=== PATIENT | female | born 1970 | race Caucasian/White ===

== ENCOUNTER 2021-12-07 07:37 | Outpatient (CLI) | payer OTHER, SELFPAY ==
--- NOTE | 2021-12-07 07:42 | CT_ITS ---
STUDY: CT SCAN LOWER EXTREMITY LEFT REASON FOR EXAM: Female, 51 years old. LEFT KNEE VARUS DEFORMITY.[facility] protocol. RADIATION DOSAGE (If Supplied By Facility): CTDIvol = ( 19.01 ) mGy, DLP = ( 1437.24 ) mGycm. Individualized dose optimization techniques were used for this CT.? TECHNIQUE: Multiple axial tomographic images of the left hip, left knee and left ankle joints were obtained. Coronal and sagittal reconstruction was obtained as well. COMPARISON: None. FINDINGS: Imaging of the hip joint was obtained. No significant joint space narrowing is seen. No bony abnormalities present. Imaging of the knee joint was obtained. There is a marked degree of joint space narrowing and degenerative spur formation along the medial knee compartment. There is increased sclerosis of the medial femoral condyle. No significant joint effusion is seen. Imaging of the ankle joint was obtained. No significant abnormality is seen. CT/Extremity Lower without Contra IMPRESSION: Marked degree of joint space narrowing and degenerative changes of the medial compartment of knee joint. Electronically Signed: Alexx Baron MD at 12:42 EST ,
--- NOTE | 2021-12-07 07:42 | RAD_ITS ---
STUDY: X-RAY CHEST REASON FOR EXAM: Female, 51 years old. Preop for pelvic surgery TECHNIQUE: PA and lateral views of the chest. COMPARISON: None. FINDINGS: The lungs are clear and expanded. There is no demonstrated pleural abnormality. Normal size heart. Normal mediastinum and cliff. Normal visualized pulmonary arteries. Normal visualized aortic arch and descending thoracic aorta. Normal visualized thoracic spine. Normal visualized ribs, clavicles, and shoulders. There is no demonstrated abnormality of the visualized soft tissue structures of the upper abdomen. RAD/Chest PA and Lateral IMPRESSION: Normal x-ray examination of the chest. Electronically Signed: Benjamin Suárez MD at 16:23 EST ,
--- NOTE | 2021-12-07 08:01 | EKG12_ITS ---
Test Reason : PRE OP Blood Pressure : / mmHG Vent. Rate : 068 BPM Atrial Rate : 068 BPM P-R Int : 134 ms QRS Dur : 100 ms QT Int : 398 ms P-R-T Axes : 047 011 018 degrees QTc Int : 423 ms Normal sinus rhythm Normal ECG Confirmed by TRINIDAD GARCIA, SPIKE ([id number]), continuity editor IVY BERNABE ([id number]) on 12/07/2021 2:32:53 PM Referred By: Filemon Martin Confirmed By:SPIKE ABDI MD
== END 2021-12-07 23:59 | disposition home or self-care (01) ==
LOC: CT 07:40
PROVIDERS: PCP Nurse Practitioner Family; Referring Provider Specialist; Visit Provider Specialist
DX: Z01.811 Encounter for preprocedural respiratory examination (principal); M21.162 Varus deformity, not elsewhere classified, left knee
CPT/HCPCS: 71046; 73700; 93005

== ENCOUNTER 2025-06-21 16:15 | Emergency (ER) | payer BC, SELFPAY ==
[2025-06-21] VITALS (10 sets, daily range): BP systolic 117–151; BP diastolic 78–97; PULSE 72–95; RESP 15–19; TEMP 36.6; O2SAT 95–99; BMI 39.5
--- NOTE | 2025-06-21 16:26 | EKG12_ITS ---
Test Reason : sob Blood Pressure : */* mmHG Vent. Rate : 81 BPM Atrial Rate : 81 BPM P-R Int : 132 ms QRS Dur : 102 ms QT Int : 410 ms P-R-T Axes : 37 9 16 degrees QTcB Int : 476 ms Normal sinus rhythm Cannot rule out Inferior infarct , age undetermined Abnormal ECG Confirmed by TRINIDAD GARCIA, SPIKE ([id number]), editor at large IVY BERNABE ([id number]) on 06/22/2025 8:00:26 AM Referred By: Confirmed By: SPIKE ABDI MD
--- NOTE | 2025-06-21 16:27 | EX.ED.DYSGE1 ---
HPI History of Present Illness Chief Complaint: Palpitations Narrative Narrative: 54-year-old female past medical history of depression Afsaneh presents with lightheadedness as well as palpitations/strong heartbeat in her chest that she has been feeling more frequently all day. She states that she was recently ill with an upper respiratory infection, but has not had any recent fevers or chills. She states she is not having chest pain but feels a strong heartbeat in her chest. Seems to be coming more frequently. Today she was at work and when she turned around she felt very lightheaded and near syncopal. No leg swelling, no exacerbating or alleviating factors except for when she stands up and turns around, she feels more lightheaded. [facility] Medical History PTSD (post-traumatic stress disorder) Depression Anxiety Physical exam, pre-employment Home Medications ?Medication ?Instructions ?Recorded ?Last Taken ?Type buspirone 30 mg tablet 30 mg PO BID 10/25/24 Unknown History duloxetine 60 mg capsule,delayed mg PO DAILY 10/25/24 Unknown History release tizanidine 4 mg tablet mg PO 10/25/24 Unknown History trazodone 100 mg tablet 100 mg PO QHS insomnia 10/25/24 Unknown History Allergy/AdvReac Type Severity Reaction Status Date / Time nitrofurantoin Allergy Hives Verified 06/21/25 17:13 macrocrystalline (From Macrodantin) oxycodone HCl (From Percocet) Allergy Hives Verified 06/21/25 17:13 Surgical History History of partial hysterectomy H/O hernia repair History of total left knee replacement Social History Smoking Status: Unknown if ever smoked ROS ROS ED ROS Narrative Review of systems positive for lightheadedness worse with standing and turning, positive strong heartbeat felt in chest but denies chest pain. No diaphoresis. No recent upper respiratory infection. No swelling of legs. EXAM Physical Exam Narrative Exam Narrative: Afebrile. Vital signs noted. Nontoxic-appearing. Cardiovascular examination reveals a regular rate and rhythm. Lungs are clear to auscultation bilaterally. Abdomen is soft nontender without guarding or rebound. Positive bowel sounds. Neurological examination nonfocal, nonlateralizing, moves all extremities. No pedal edema appreciable. Const Vital Signs: 06/21/25 16:16 06/21/25 16:35 06/21/25 16:40 Temperature 97.8 F Temperature Source Oral Pulse Rate 86 Pulse Rate [Lying] 85 Pulse Rate [Sitting (for 1 minute prior to obtaining)] 95 Pulse Rate [Standing (for 1 minute prior to obtaining)] 84 Respiratory Rate 18 Respiratory Effort Short of Breath Blood Pressure 144/97 H Blood Pressure [Lying] 139/85 H Blood Pressure [Sitting (for 1 minute prior to obtaining)] 148/79 H Blood Pressure [Standing (for 1 minute prior to obtaining)] 151/95 H Blood Pressure Mean 112 Blood Pressure Mean [Lying] 103 Blood Pressure Mean [Sitting (for 1 minute prior to obtaining)] 102 Blood Pressure Mean [Standing (for 1 minute prior to obtaining)] 113 Pulse Ox 98 Oxygen Delivery Method Room Air 06/21/25 16:58 06/21/25 17:00 06/21/25 17:15 Temperature Temperature Source Pulse Rate 82 86 82 Pulse Rate [Lying] Pulse Rate [Sitting (for 1 minute prior to obtaining)] Pulse Rate [Standing (for 1 minute prior to obtaining)] Respiratory Rate 15 19 H 17 Respiratory Effort Blood Pressure 121/86 H 117/78 Blood Pressure [Lying] Blood Pressure [Sitting (for 1 minute prior to obtaining)] Blood Pressure [Standing (for 1 minute prior to obtaining)] Blood Pressure Mean 97 90 Blood Pressure Mean [Lying] Blood Pressure Mean [Sitting (for 1 minute prior to obtaining)] Blood Pressure Mean [Standing (for 1 minute prior to obtaining)] Pulse Ox 97 96 99 Oxygen Delivery Method Room Air Room Air 06/21/25 17:39 Temperature Temperature Source Pulse Rate 76 Pulse Rate [Lying] Pulse Rate [Sitting (for 1 minute prior to obtaining)] Pulse Rate [Standing (for 1 minute prior to obtaining)] Respiratory Rate 17 Respiratory Effort Blood Pressure 128/86 H Blood Pressure [Lying] Blood Pressure [Sitting (for 1 minute prior to obtaining)] Blood Pressure [Standing (for 1 minute prior to obtaining)] Blood Pressure Mean 100 Blood Pressure Mean [Lying] Blood Pressure Mean [Sitting (for 1 minute prior to obtaining)] Blood Pressure Mean [Standing (for 1 minute prior to obtaining)] Pulse Ox 95 Oxygen Delivery Method Room Air MDM MDM MDM Narrative Medical decision making narrative: The differential diagnosis includes but not limited to paroxysmal SVT versus atrial fibrillation versus PACs versus PVCs. She may have orthostatic hypotension versus dehydration versus other electrolyte abnormality. Comprehensive workup was pursued. EKG was obtained and interpreted by myself independently as normal sinus rhythm at 81 bpm without ectopy or acute ST changes. No STEMI. I reviewed her laboratory work and she has normal white count of 5.5 with hemoglobin normal at 14.2, no anemia, platelet count normal at 217. CMP is grossly unremarkable with a normal sodium, potassium, and chloride. BUN normal at 19 and creatinine 0.84, no dehydration, glucose slightly elevated at 163 with a normal anion gap of 13. LFTs are grossly unremarkable. High-sensitivity troponin is 7. I do feel that this is greater than a 6-hour troponin so I do not feel that she needs a 2-hour troponin as she states she is not having chest pain as well. Chest x-ray in 1 view interpreted by myself independently shows no pneumonia or pneumothorax, no acute process. I reviewed the radiology report which confirms my independent interpretation. On repeat examination at 1800, she feels improved. She states not having the strong heartbeat any longer. While I am unsure as to the cause of her lightheadedness, she may have had intravascular volume depletion. I feel she can be discharged safely home with follow-up. She was told that she may need to wear a Holter monitor as an outpatient should she have continued palpitations or strong heartbeat. Return instructions to the emergency department were reviewed. Disposition is discharged home in stable condition. History & Record Review Discussion w/independent historian: Patient Additional record(s) reviewed:: Prior ED visit (Prior visit was in 2015) Lab Data Attestation: I reviewed the patient's lab results. Labs: Laboratory Results - last 24 hr 06/21/25 16:35 WBC 5.5 RBC 4.48 Hgb 14.2 Hct 41.2 MCV 92.0 MCH 31.7 MCHC 34.5 RDW Std Deviation 43.4 RDW Coeff of [place] 12.9 Plt Count 217 MPV 8.7 Immature Gran % (Auto) 0.200 Neut % (Auto) 51.3 Lymph % (Auto) 39.3 [place] % (Auto) 7.4 Eos % (Auto) 1.3 Baso % (Auto) 0.5 Absolute Neuts (auto) 2.8 Absolute Lymphs (auto) 2.17 Nucleated RBC % 0 Sodium 136 Potassium 4.3 Chloride 101 Carbon Dioxide 22.6 Anion Gap 13 BUN 19 Creatinine 0.84 Estim Creat Clear Calc 97.84 Est GFR (MDRD) Non-Af 83 BUN/Creatinine Ratio 22.0 H Glucose 163 H Calcium 8.7 Total Bilirubin 0.48 AST 22 ALT 17 Alkaline Phosphatase 75 Troponin T High Sens 7 Total Protein 6.7 Albumin 4.0 Globulin 2.7 Albumin/Globulin Ratio 1.5 Radiography Diagnostic Testing: Clinical Impression(s) from Imaging Studies Chest X-Ray 06/21/25 16:42 IMPRESSION: No acute cardiopulmonary disease. Reading Location: [id number] Discharge Plan Triage Chief Complaint: Palpitations ED Provider: Josh Nichols Dx/Rx/DC Orders Clinical Impression: Lightheadedness, Palpitations Instructions: ED Heart Palpitations, ED Near-Fainting, Uncertain Cause Prescriptions: No Action duloxetine 60 mg capsule,delayed release(DR/EC) PO DAILY buspirone 30 mg tablet 30 mg PO BID trazodone 100 mg tablet 100 mg PO QHS tizanidine 4 mg tablet PO Patient Comments: [NO ORIGINAL SIG] Primary Care Provider: Kellie Ho Referrals: Kellie Ho, [facility] [Primary Care Provider, Medical] - 3-5 Days if not improving Activity Restrictions/Additional Instructions: Return to the emergency department with new or worsening symptoms. Follow-up with your primary care provider if not improving. You may need to wear a Holter monitor as an outpatient. Print Language: [place] Disposition Disposition: Home, Self Care
[2025-06-21] MEDS: 0.9% Normal Saline (1000mL) 1,000 ML 1000 ML IV (16:42)
--- NOTE | 2025-06-21 16:42 | RAD_ITS ---
PROCEDURE: CHEST 1 VIEW (PORTABLE) 06/21/2025 REASON FOR EXAM: LIGHTHEADEDNESS TECHNIQUE: Frontal view of the chest. COMPARISON: 12/07/2021 FINDINGS: Lungs/Pleura: Clear. No pneumothorax or sizable pleural effusion. Heart/Mediastinum: Within normal limits. Bones/Soft tissues: Unremarkable. RAD/Chest 1 View (Portable) IMPRESSION: No acute cardiopulmonary disease. Reading Location: [id number]
[2025-06-21 17:17] LABS: Hematocrit 41.2 % (37-47); Hemoglobin 14.2 g/dL (12.0-15.0); Immature Granulocytes Count 0.010 X10^3/uL (0.0-0.0); Mean Corp Hgb Conc 34.5 g/dL (32-36); Mean Corpuscular Volume 92.0 fL (81-99); Mean Platelet Vol. 8.7 fl (6.2-12.0); NRBC Flagged by Analyzer 0 % (0-5); Platelet Count 217 K/mm3 (150-450); RBC Distribution Width CV 12.9 % (11.6-14.6); RBC Distribution Width SD 43.4 fl (35.1-43.9); Red Blood Count 4.48 M/mm3 (4.2-5.4); White Blood Count 5.5 K/mm3 (4.4-11.0)
[2025-06-21 17:25] LABS: AST(SGOT) 22 U/L (<=31); Alanine Aminotransfer ALT/SGPT 17 U/L (<=34); Albumin, Serum 4.0 g/dL (3.5-5.0); Alkaline Phosphatase 75 U/L (35-104); Anion Gap 13 (5-15); BUN 19 mg/dL (4-19); BUN/Creat Ratio 22.0 RATIO (10-20); Calcium,Total 8.7 mg/dL (7.6-11.0); Carbon Dioxide 22.6 mmol/L (21.0-32.0); Chloride 101 mmol/L (98-108); Estimated Creatinine Clearance 97.84 ml/min (50-250); Globulin 2.7 g/dL (2.2-4.2); Glucose 163 mg/dL (70-99); Potassium 4.3 mmol/L (3.3-5.1)
[2025-06-21 17:51] LABS: Troponin T High Sensitivity 7 ng/L (<=14)
== END 2025-06-21 18:13 | disposition home or self-care (01) ==
PROVIDERS: Emergency Provider Emergency Medicine; PCP Nurse Practitioner Family; Visit Provider Emergency Medicine
DX: R42 Dizziness and giddiness (principal); R00.2 Palpitations; F32.A Depression, unspecified; F41.9 Anxiety disorder, unspecified; F43.10 Post-traumatic stress disorder, unspecified; Z79.899 Other long term (current) drug therapy
CPT/HCPCS: 71045; 80053; 84484; 85025; 93005; 96360; 99285; A4216